=== PATIENT | male | born 1995 | race Caucasian/White ===

== ENCOUNTER 2020-09-06 12:38 | Emergency (ER) | payer OTHER ==
--- NOTE | 2020-09-06 12:51 | ED Physician Documentation ---
PD HPI OPHTHO - Stated complaint Stated Complaint: PUFFY EYES - Chief complaint Chief Complaint: Heent - History obtained from History obtained from: Patient - History of Present Illness Timing - onset: Yesterday Timing - duration: Days (2) Timing - details: Gradual onset, Waxing and waning Location: Both (Initially some swelling and itching of the left eye which then increased to both eyes. He had some nasal congestion and sneezing as well. Has a gritty feeling of his eyes. No known foreign bodies. Does not wear contacts.) Quality / character: Itching, Burning, Other (some swelling of conjunctiva and upper eyelids.) Associated symptoms: Swelling, Tearing, Other (felt briefly better with OTC lubricating eye drops.). No: Discharge, Matting, FB sensation, Decreased vision Contributing factors: Other (works as security at [employer]. No unusual chemical exposures at work nor home.). No: Exposed to conjunctivitis, FB, Wears contacts Similar symptoms before: Has not had sx before Recently seen: Not recently seen Review of Systems Constitutional: denies: Fever, Chills Eyes: reports: Irritation. denies: Discharge Nose: reports: Rhinorrhea / runny nose Throat: reports: Sore throat (mild scratchy) Respiratory: denies: Cough Skin: denies: Rash, Lesions PD PAST MEDICAL HISTORY - Past Medical History Past Medical History: No Cardiovascular: None Respiratory: None Neuro: None Endocrine/Autoimmune: None - Present Medications Home Medications: Ambulatory Orders Medication Instructions Recorded Confirmed Cetirizine [ZyrTEC] 10 mg PO DAILY #25 tablet 09/06/20 Ketotifen Fumarate [Eye Itch 2 drops EACHEYE QID PRN #5 ml 09/06/20 Relief] - Allergies Allergies/Adverse Reactions: Allergies Allergy/AdvReac Type Severity Reaction Status Date / Time No Known Drug Allergies Allergy Verified 09/06/20 12:57 PD ED PE NORMAL - Vitals Vital signs reviewed: Yes - General General: Alert and oriented X 3, No acute distress, Well developed/nourished - HEENT HEENT: PERRL, EOMI, Other (bilateral general upper eyelid edema without redness. Conjunctival mild edema bilaterally. No exudate. No dye uptake. Normal anterior chamber. Not light sensitive. ) - Neck Neck: Supple, no meningeal sign, No adenopathy Results - Vitals Vitals: Vital Signs - 24 hr 09/06/20 09/06/20 12:42 13:31 Temperature 36.9 C 36.8 C Heart Rate 87 79 Respiratory 15 16 Rate Blood Pressure 130/78 130/69 O2 Saturation 99 99 Oxygen O2 Source Room air PD MEDICAL DECISION MAKING - ED course Complexity details: considered differential (Sounds allergy and not infectious. ), d/w patient Departure - Departure Disposition: 01 Home, Self Care Clinical Impression: Allergic conjunctivitis and rhinitis Qualifiers: Laterality: bilateral Qualified Code(s): H10.13 - Acute atopic conjunctivitis, bilateral Condition: Stable Record reviewed to determine appropriate education?: Yes Instructions: ED Allergic Conjunctivitis Prescriptions: Ketotifen Fumarate [Eye Itch Relief] 2 drops EACHEYE QID PRN #5 ml PRN Reason: Allergy Symptoms Cetirizine [ZyrTEC] 10 mg PO DAILY #25 tablet Comments: This looks to be allergy related and not infectious. I would go with cetirizine antihistamine twice daily initially for a few days and then daily. Use ketotifen antihistamine eyedrops 3-4 times a day as well for the next 3-5 days. I think this will have a more sustaining effect with improvement on your eyes. I would anticipate improvement over the next few days. Recheck if persistent or worsening symptoms. I wrote a work note for tonight if needed. If you are feeling well enough its okay to be working as this is not contagious. Forms: Activity restrictions Discharge Date/Time: 09/06/20 13:32
[2020-09-06] MEDS ORDERED: CHERRY SYRUP 10 ML UDC PO ONE (13:16)
[2020-09-06] MEDS ORDERED: DEXAMETHASONE 10 MG/ML VIAL PO STA (13:16)
[2020-09-06] MEDS ORDERED: CETIRIZINE 10 MG TABLET PO STA (13:16)
[2020-09-06 13:32] VITALS: BP 130/69
== END 2020-09-06 13:32 | disposition home or self-care (01) ==
LOC: ED 12:38
DX: H10.13 Acute atopic conjunctivitis, bilateral (principal)
CPT/HCPCS: 99282; 99283; A9270